=== PATIENT | male | born 1965 | race Caucasian/White ===

== ENCOUNTER 2022-06-19 00:58 | Emergency (ER) | payer MEDICAID ==
[~2022-06-19] VITALS: Ht 175.3 cm; Wt 68.0 kg
[2022-06-19 01:01] VITALS: BP 106/67
--- NOTE | 2022-06-19 01:02 | NUR ---
PT BIBA TO ER BED 12 ALS
[2022-06-19 01:08] VITALS: BP 106/67
--- NOTE | 2022-06-19 01:08 | NUR ---
SEE COMPLETE ASSESSMENT FOR FURTHER DETAILS
--- NOTE | 2022-06-19 01:08 | NUR ---
PT PROVIDED WITH WARM BLANKET AND A MEAL. LIGHTS DIMMED FOR PT COMFORT
--- NOTE | 2022-06-19 01:50 | NUR ---
IV removed, catheter intact and site benign. Applied folded 4x4 gauze and tape to stop bleeding.
--- NOTE | 2022-06-19 01:57 | NUR ---
Patient discharged with v/s stable. Written and verbal after care instructions given and explained. Patient verbalized understanding. Ambulatory with steady gait. All questions addressed prior to discharge. Advised to follow up with PMD. Pt provided with meal and weather appropiate clothing.
== END 2022-06-19 01:57 | disposition home or self-care (01) ==
LOC: MED 00:58
DX: T40.2X1A Poisoning by other opioids, accidental (unintentional), initial encounter (principal); F17.210 Nicotine dependence, cigarettes, uncomplicated; F12.90 Cannabis use, unspecified, uncomplicated; F15.90 Other stimulant use, unspecified, uncomplicated; Z79.899 Other long term (current) drug therapy; Y92.89 Other specified places as the place of occurrence of the external cause
CPT/HCPCS: 99283